=== PATIENT | female | born 1995 | race Caucasian/White ===

== ENCOUNTER 2019-10-05 00:27 | Emergency (ER) | payer SELFPAY ==
[~2019-10-05] VITALS: Ht 177.8 cm; Wt 61.4 kg
[2019-10-05 00:36] VITALS: BP 143/80; TEMP 97.8
[2019-10-05 01:11] LABS: COLLECTION METHOD CLEAN CATCH
[2019-10-05 01:18] LABS: MUCOUS Present /lpf; PH 6 (5-8); URINE APPEARANCE Hazy; URINE BACTERIA Rare /hpf; URINE BILIRUBIN Negative (NEGATIVE); URINE BLOOD Negative (NEGATIVE); URINE COLOR Yellow; URINE GLUCOSE Negative (NEGATIVE); URINE KETONE Negative (NEGATIVE); URINE LEUKOCYTE ESTERASE Negative (NEGATIVE); URINE NITRATE Negative (NEGATIVE); URINE PROTEIN(semi-quant) Negative (NEGATIVE); URINE UROBILINOGEN Negative (NEGATIVE)
[2019-10-05] MEDS ORDERED: VALTREX1 GM PO (01:29)
[2019-10-05 01:34] VITALS: PULSE 83
== END 2019-10-05 01:34 | disposition home or self-care (01) ==
LOC: COL.ER 00:27
PROVIDERS: Physician Assistant
DX: B00.89 Other herpesviral infection (principal); F17.210 Nicotine dependence, cigarettes, uncomplicated

== ENCOUNTER 2020-02-17 17:33 | Emergency (ER) | payer SELFPAY ==
[~2020-02-17] VITALS: Ht 177.8 cm; Wt 68.2 kg
[~2020-02-17 17:33] MED LIST: VALTREX1 GM PO
[2020-02-17 18:13] LABS: COLLECTION METHOD CLEAN CATCH
[2020-02-17 18:21] LABS: MUCOUS Present /lpf; PH 5 (5-8); URINE APPEARANCE Hazy; URINE BACTERIA Rare /hpf; URINE BILIRUBIN Negative (NEGATIVE); URINE BLOOD Negative (NEGATIVE); URINE COLOR Yellow; URINE GLUCOSE Negative (NEGATIVE); URINE KETONE Trace (NEGATIVE); URINE LEUKOCYTE ESTERASE Negative (NEGATIVE); URINE NITRATE Negative (NEGATIVE); URINE PROTEIN(semi-quant) Negative (NEGATIVE); URINE RBC 0-2 /hpf; URINE UROBILINOGEN Negative (NEGATIVE)
[2020-02-17 21:18] VITALS: BP 132/70; PULSE 92; TEMP 98
== END 2020-02-17 21:19 | disposition home or self-care (01) ==
LOC: COL.ER 17:33
PROVIDERS: Physician Assistant
DX: S06.0X0A Concussion without loss of consciousness, initial encounter (principal); S16.1XXA Strain of muscle, fascia and tendon at neck level, initial encounter; S00.33XA Contusion of nose, initial encounter; F17.210 Nicotine dependence, cigarettes, uncomplicated; Y04.8XXA Assault by other bodily force, initial encounter; Y92.009 Unspecified place in unspecified non-institutional (private) residence as the place of occurrence of the external cause
CPT/HCPCS: J2405; J7030

== ENCOUNTER 2020-09-24 04:01 | Emergency (ER) | payer SELFPAY ==
[~2020-09-24] VITALS: Ht 177.8 cm; Wt 65.9 kg
[2020-09-24] MEDS ORDERED: DOXYCYCLINE 10100 MG PO (04:31)
[2020-09-24] MEDS ORDERED: VALTREX1 GM PO (04:31)
[2020-09-24 04:35] VITALS: BP 134/84; PULSE 71; TEMP 98.5
== END 2020-09-24 04:45 | disposition home or self-care (01) ==
LOC: COL.ER 04:01
DX: J34.89 Other specified disorders of nose and nasal sinuses (principal); Z88.8 Allergy status to other drugs, medicaments and biological substances

== ENCOUNTER 2021-01-22 16:50 | Emergency (ER) | payer SELFPAY ==
[~2021-01-22 16:50] MED LIST changes: +DOXYCYCLINE 10100 MG PO
[2021-01-22 17:06] VITALS: TEMP 98.7
[2021-01-22 18:45] VITALS: BP 128/76; PULSE 64
== END 2021-01-22 18:45 | disposition home or self-care (01) ==
LOC: COL.ER 16:50
DX: M70.22 Olecranon bursitis, left elbow (principal); F17.210 Nicotine dependence, cigarettes, uncomplicated; Z88.1 Allergy status to other antibiotic agents; W18.39XA Other fall on same level, initial encounter

== ENCOUNTER 2021-10-23 17:28 | Emergency (ER) | payer SELFPAY ==
[~2021-10-23] VITALS: Ht 177.8 cm; Wt 65.9 kg
[2021-10-23 17:35] VITALS: TEMP 97.9
[2021-10-23 18:12] LABS: STREP SCREEN NEGATIVE
[2021-10-23 18:55] LABS: MONOSCREEN POSITIVE
[2021-10-23 19:35] VITALS: BP 111/69; PULSE 78
== END 2021-10-23 19:35 | disposition home or self-care (01) ==
LOC: COL.ER 17:28
PROVIDERS: Physician Assistant
DX: B27.90 Infectious mononucleosis, unspecified without complication (principal); J45.909 Unspecified asthma, uncomplicated; Z20.822 Contact with and (suspected) exposure to COVID-19